=== PATIENT | female | born 1950 | race Caucasian/White ===

== ENCOUNTER 2020-01-25 13:05 | Emergency (ER) | payer MEDICARE, SELFPAY ==
[2020-01-25 13:22] VITALS: BP 156/70; PULSE 76; RESP 16; TEMP 36.8; O2SAT 96; BMI 30.8
[2020-01-25] MEDS: BUPIVACAINE 0.25% W/ EPI (PF) 10 ML VIAL 5 ML SUBCUT (14:06)
[2020-01-25] MEDS: IBUPROFEN 400 MG TABLET 800 MG PO (14:08)
--- NOTE | 2020-01-25 14:15 | ED.DENTAL ---
HPI - Dental/Oral General Chief complaint: Dental/Oral Stated complaint: Lost 2 lbs, mouth feels infected Time Seen by Provider: 01/25/20 13:21 Source: patient Mode of arrival: Ambulatory Limitations: no limitations History of Present Illness HPI Narrative: Patient is a 69-year-old female who presents with dental pain. She lost 2 crowns both upper and lower 3 days ago. They replaced 40 years ago she feels like she has had some swelling in her jaw she has been unable to sleep as she has lost 2 lb for inability to eat. Denies any fever chills. MD Complaint: tooth pain Location: Tooth # Teeth map: 1. 2. Onset (ago): day(s) Related Data Home Medications Medication Instructions Recorded Confirmed zolpidem 10 mg PO HS #0 11/03/10 Hydroxyzine Hydrochloride 100 mg PO Q6HP #0 11/04/10 (#HYDROXYZINE HCL) Previous Rx's Medication Instructions Recorded tolterodine [Detrol LA] 4 mg PO QDAY #90 11/03/10 HYDROCODONE/ACETAMINOPHEN (Vicodin 1 tab PO Q6HP #10 04/18/11 5-500 Tablet) ondansetron HCl [Zofran] 4 mg PO Q6HP #10 04/18/11 fluconazole [Diflucan] 150 mg PO QDAY #1 04/28/11 amoxicillin 500 mg PO BID #14 cap 01/25/20 hydrocodone-acetaminophen 1 tab PO Q6H PRN #10 tab 01/25/20 Allergies Allergy/AdvReac Type Severity Reaction Status Date / Time INGREDIENT: NKDA - NO KNOWN Allergy Unknown Uncoded 09/19/17 12:09 DRUG ALLERGIES Review of Systems Review of Systems Narrative: GENERAL: Denies chills,fever HEENT: See HPI Denies throat pain RESPIRATORY: Denies dyspnea, cough, wheezing CARDIOVASCULAR: Denies chest pain, palpitations GASTROINTESTINAL: Denies nausea, vomiting MUSCULOSKELETAL: Denies extremity pain, injury SKIN: No rash, no laceration, no pruritus NEUROLOGIC: Denies weakness, dizziness, headache, numbness 8 point review of systems is negative except for those stated above and HPI Patient History Social History Smoking Status: Never smoker Smoking Status: Never smoker alcohol intake frequency: 0-2 drinks per day Substance Use Type: does not use Exam Initial Vital Signs Initial Vital Signs: Vital Signs Temperature 98.3 F 01/25/20 13:22 Pulse Rate 76 01/25/20 13:22 Respiratory Rate 16 01/25/20 13:22 Blood Pressure 156/70 H 01/25/20 13:22 Pulse Oximetry 96 01/25/20 13:22 GENERAL: Well-appearing, well-nourished and in no acute distress. DENTAL: No dental abscess minimal swelling noted of crown is gone. CARDIOVASCULAR: peripheral pulses in tact, cap refill <2 sec RESPIRATORY: No respiratory distress, speaks in full sentences without difficulty EXTREMITIES: Normal range of motion, no clubbing or edema. Neurovascularly intact NEUROLOGICAL: Cranial nerves II through XII grossly intact. Normal gait and speech. SKIN: Warm, dry, no petechiae, no rashes or lesions. Procedures Nerve Block Nerve Block 1: Local Anesthetic: bupivacaine 0.25% and with epi Side: left Intraoral Nerve Block: supraperiosteal Procedure Successful: No Complications: pain with procedure and inadequate anesthesia Additional Comments: The patient did not receive relief with pain in fact she felt some of it made it worse. Course Orders Ordered: Discontinued Medications Bupivacaine HCl/Epinephrine Bitart (Marcaine 0.25% W/ Epi (Pf)) 5 ml SUBCUT NOW ONE Stop: 01/25/20 13:57 Last Admin: 01/25/20 14:06 Dose: 5 ml Documented by: ANA Ibuprofen (Advil) 800 mg PO NOW ONE Stop: 01/25/20 14:03 Last Admin: 01/25/20 14:08 Dose: 800 mg Documented by: ANA Vital Signs Vital signs: Vital Signs - 8 hr 01/25/20 13:22 Temperature 98.3 F Pulse Rate 76 Respiratory Rate 16 Blood Pressure 156/70 H Pulse Oximetry 96 MDM - Dental/Oral MDM Narrative Medical decision making narrative: I discussed all findings with the patient, Education has been performed regarding treatment plan, diagnosis, warning signs and symptoms and all concerns have been addressed. Verbally agree with and understood all of the above. Discharge Plan Departure Patient Disposition: Home Clinical Impression: Toothache Discharge Date/Time: 01/25/20 14:15 Instructions: DI for Dental Pain Activity Restrictions/Additional Instructions: *You have been diagnosed with dental pain *What to do: It is imperative that you follow-up with a dentist for replacement of crowns. Recommend soft foods and smoothies. *Continue to take medications as directed [place] 1 tablet every 6 hours if needed for pain Amoxicillin 500 mg twice a day for 7 days *Follow up with your primary care provider in 2-3 days *Return to ER if you should have increasing swelling, redness, fevers or any new, worsening or concerning symptoms CONTROLLED SUBSTANCE DISCHARGE (Narcotoic/benzodiazepine/Flexeril/Phenergan) 1. You have been prescribed narcotic medications, it does have acetaminophen/Tylenol/paracetamol in it so do not take extra Tylenol or Tylenol containing products TRAMADOL DOES NOT CONTAIN TYLENOL 2. Please understand that we cannot provide further refills of narcotics, benzodiazepines or controlled substances through the ED and her pain management will need to be through your provider. 3. While on these medications you cannot drive or operate heavy machinery. 4. You cannot sign legal documents or perform any duties such as this. 5. As long as you're taking opiate pain medications he should also be taking a stool softener such as Colace, Dulcolax, MiraLAX or prune juice, to help avoid constipation. Prescriptions: New amoxicillin 500 mg capsule 500 mg PO BID Qty: 14 RF: 0 hydrocodone-acetaminophen 5-325 mg tablet 1 tab PO Q6H PRN (Reason: pain) Qty: 10 RF: 0 No Action zolpidem 10 MG tablet 10 mg PO HS Qty: 0 RF: 0 tolterodine [Detrol LA] 4 MG capsule,extended release 24hr 4 mg PO QDAY Qty: 90 RF: 3 Hydroxyzine Hydrochloride (#HYDROXYZINE HCL) 100 mg PO Q6HP Qty: 0 RF: 0 ondansetron HCl [Zofran] 4 MG tablet 4 mg PO Q6HP Qty: 10 RF: 1 HYDROCODONE/ACETAMINOPHEN (Vicodin 5-500 Tablet) 1 tab PO Q6HP Qty: 10 RF: 1 fluconazole [Diflucan] 150 MG tablet 150 mg PO QDAY Qty: 1 RF: 0
== END 2020-01-25 14:15 | disposition home or self-care (01) ==
PROVIDERS: Emergency Provider Emergency Medicine
DX: K08.89 Other specified disorders of teeth and supporting structures (principal)
CPT/HCPCS: 64450; 99283